=== PATIENT | female | born 1935 | race Caucasian/White ===

== ENCOUNTER 2021-09-07 14:05 | Outpatient (CLI) | payer MEDICARE, OTHER | END 2021-09-07 14:06 | disposition home or self-care (01) | LOC: BURRAD 14:05 | PROVIDERS: ATTEND Family Medicine | DX: M25.571 Pain in right ankle and joints of right foot (principal) ==

== ENCOUNTER 2022-06-18 11:43 | Emergency (ER) | payer MEDICARE, OTHER ==
[2022-06-18 12:34] LABS: #Basophils 0.1 thou/uL (0.0-0.2); #Eosinphils 0.2 thou/uL (0.0-0.7); #Monocytes 0.4 thou/uL (0.11-0.59); #Neutrophils 1.9 thou/uL (1.40-6.50); %Basophils 2.6 % (0.0-1.0); %Eosinophils 6.3 % (0.0-10.0); %Lymphocytes 28.7 % (21.0-51.0); %Monocytes 10.6 % (0.0-10.0); %Neutrophils 51.8 % (42.0-75.0); Hemoglobin 13.2 g/dL (12.0-16.0); Mean Corpuscular Hemoglobin 31.1 pg (27.0-31.0); Mean Corpuscular Volume 97.2 fl (78.0-98.0); Mean Platelet Volume 8.8 fL (7.4-10.4); Platelet Count 162 10x3/uL (130-400); RBC Distribution Width 12.9 % (11.5-14.5); Red Blood Cell (RBC) Count 4.24 mill/uL (4.20-5.40); White Blood Cell (WBC) Count 3.6 10x3/uL (4.8-10.8)
[2022-06-18 12:53] LABS: ALT (SGPT) 17 U/L (8-55); AST (SGOT) 22 U/L (5-34); Albumin 3.9 g/dL (3.4-4.8); Alkaline Phosphatase 88 U/L (40-110); Anion Gap 11 mmol/L (10-20); BUN (Urea Nitrogen) 17 mg/dL (9.8-20.1); Bilirubin, Total 0.4 mg/dL (0.2-1.2); Calc. Creatinine Clearance 0 mL/min (70-130); Calcium 8.9 mg/dL (7.8-10.44); Carbon Dioxide 27 mmol/L (23-31); Chloride 104 mmol/L (98-107); Estimated GFR 48; Globulin 2.3 g/dL (2.4-3.5); Glucose 93 mg/dL (83-110); Magnesium 2.2 mg/dL (1.6-2.6); Potassium 4.3 mmol/L (3.5-5.1); Protein, Total 6.2 g/dL (5.8-8.1); Sodium 138 mmol/L (136-145)
== END 2022-06-18 13:40 | disposition home or self-care (01) ==
LOC: BURERS 11:43
DX: R53.1 Weakness (principal); R63.0 Anorexia; I10 Essential (primary) hypertension; Z79.899 Other long term (current) drug therapy; E03.9 Hypothyroidism, unspecified
CPT/HCPCS: 36415; 80053; 83735; 84484; 85025; 93005

== ENCOUNTER 2023-02-07 10:14 | Outpatient (CLI) | payer MEDICARE, OTHER | END 2023-02-07 10:15 | disposition home or self-care (01) | LOC: BURCT 10:14 | PROVIDERS: ATTEND Family Medicine | DX: S00.93XS Contusion of unspecified part of head, sequela (principal); S06.5XAA Traumatic subdural hemorrhage with loss of consciousness status unknown, initial encounter | CPT/HCPCS: 70450 ==

== ENCOUNTER 2023-05-08 09:23 | Emergency (ER) | payer MEDICARE, OTHER ==
[2023-05-08] MEDS ORDERED: Acetaminophen 500 MG TAB ONE (09:54)
[2023-05-08 10:06] LABS: Bilirubin Negative (Negative); Blood, Urine Negative (Negative); Clarity Clear (Clear); Glucose, Urine (Dipstick) Negative (Negative); Ketone, Urine Negative (Negative); Leukocyte Negative (Negative); Nitrite Negative (Negative); Protein, Urine (Dipstick) Negative (Neg-Trace); Specific Gravity, Urine 1.025 (1.005-1.030); Urobilinogen 0.2 mg/dL (Less than 2); pH, Urine 5.5 (5.0-9.0)
[2023-05-08 10:08] LABS: Eosinophils 3 % (0-10); Hematocrit 39.3 % (36.0-47.0); Hemoglobin 13.3 g/dL (12.0-16.0); Lymphocytes 15 % (21-51); MDiff Complete? YES; Mean Corpuscular HGB CONC 33.9 g/dL (32.0-36.0); Mean Corpuscular Hemoglobin 31.2 pg (27.0-31.0); Mean Corpuscular Volume 92.1 fl (78.0-98.0); Mean Platelet Volume 7.7 fL (7.4-10.4); Monocytes 15 % (0-10); Neutrophil 67 % (42-75); Platelet Count 175 10x3/uL (130-400); RBC Distribution Width 11.3 % (11.5-14.5); Red Blood Cell (RBC) Count 4.27 mill/uL (4.20-5.40); White Blood Cell (WBC) Count 5.3 10x3/uL (4.8-10.8)
[2023-05-08 10:14] LABS: Bacteria/HPF None Seen HPF (None Seen); CAUTI Indications for Culture Dysuria,urgency,freq; RBC/HPF None Seen HPF (0-3); Squamous Epithelial 0-3 HPF (0-3); WBC/HPF 0-3 HPF (0-3)
[2023-05-08 10:15] LABS: Urine Culture Reflex No No
[2023-05-08 10:21] LABS: ALT (SGPT) 15 U/L (8-55); AST (SGOT) 23 U/L (5-34); Albumin 4.3 g/dL (3.4-4.8); Alkaline Phosphatase 99 U/L (40-110); Anion Gap 16 mmol/L (10-20); BUN (Urea Nitrogen) 18 mg/dL (9.8-20.1); Bilirubin, Total 0.4 mg/dL (0.2-1.2); Calc. Creatinine Clearance 0 mL/min (70-130); Calcium 9.2 mg/dL (7.8-10.44); Carbon Dioxide 21 mmol/L (23-31); Chloride 106 mmol/L (98-107); Estimated GFR 46; Globulin 2.6 g/dL (2.4-3.5); Glucose 100 mg/dL (83-110); Protein, Total 6.9 g/dL (5.8-8.1); Sodium 139 mmol/L (136-145)
== END 2023-05-08 10:57 | disposition home or self-care (01) ==
LOC: BURERS 09:23
DX: S09.90XA Unspecified injury of head, initial encounter (principal); S13.4XXA Sprain of ligaments of cervical spine, initial encounter; S00.93XA Contusion of unspecified part of head, initial encounter; S00.81XA Abrasion of other part of head, initial encounter; E03.9 Hypothyroidism, unspecified; I10 Essential (primary) hypertension; W01.10XA Fall on same level from slipping, tripping and stumbling with subsequent striking against unspecified object, initial encounter; Z79.899 Other long term (current) drug therapy
CPT/HCPCS: 36415; 70450; 72125; 72192; 80053; 81001; 85025; 87086